=== PATIENT | male | born 1975 | race Asian ===

== ENCOUNTER 2019-04-19 16:28 | Emergency (ER) | payer OTHER ==
--- OUTSIDE RECORDS SUMMARY | 2019-04-19 16:34 | XMS REPORT | Continuity of Care Document ---
:1975 External Reference #:[id number] Author Name Melquiades Hoover N.P. (transmitted by agent of provider Silvana Duarte) Address [address], [place] [address] Care Team Providers Name Role Phone Liam Andersen MD - Internal Care Team Information Outside Operator Medicine Problems Description No Information Available Social History Type Date Description Comments Sex Unknown ETOH Use Denies alcohol use Tobacco Use Start: Unknown Patient has never smoked Smoking Status Reviewed: 03/17/19 Patient has never smoked Allergies, Adverse Reactions, Alerts Description No Known Drug Allergies Medications Active Medications SIG Qnty Indications Ordering Provider Date Amitriptyline HCL 1 tab bedtime 30tabs R51 Melquiades Hoover, 01/21/2019 10mg N.P. Tablets Breo Ellipta 1 puff inhaled Unknown Aerosol daily Immunizations Description No Information Available Vital Signs Date Vital Result Comment 03/17/2019 9:04am Height 69 inches 5'9" Weight 178.00 lb Heart Rate 74 /min BP Systolic 130 mmHg BP Diastolic 82 mmHg BMI (Body Mass Index) 26.3 kg/m2 01/21/2019 8:41am Height 69 inches 5'9" Weight 180.00 lb Heart Rate 80 /min BP Systolic 128 mmHg BP Diastolic 72 mmHg BMI (Body Mass Index) 26.6 kg/m2 Results Test Acquired Date Facility Test Result H/L Range Note CBC Auto 01/21/2019 [facility] White Blood 5.6 10^3/uL Normal 3.5-10.[address] [place] [address] [phone] Red Blood Count 4.64 10^6/uL Normal 4.18-5.48 Hemoglobin 13.9 g/dL Low 14.0-18.0 Hematocrit 41 % Low 42-52 Mean Corpuscular Volume 89 fL Normal 80-94 Mean Corpuscular Hemoglobin 30 pg Normal 27-31 Mean Corpuscular HGB Conc 34 g/dL Normal 31-36 Red Cell Distribution Width 13 % Normal 10-15 Platelet Count 176 10^3/uL Normal 150-450 Mean Platelet Volume 9.4 fL Normal 7.4-10.4 Abs Neutrophils 3.1 10^3/uL Normal 1.5-7.7 Abs Lymphocytes 1.6 10^3/uL Normal 1.0-4.8 Abs Monocytes 0.5 10^3/uL Normal 0-0.8 Abs Eosinophils 0.4 10^3/uL Normal 0-0.6 Abs Basophils 0.0 10^3/uL Normal 0-0.2 Abs Nucleated RBC 0.0 10^3/uL Granulocyte % 55.8 % Lymphocyte % 27.9 % Monocyte % 8.2 % Eosinophil % 7.3 % Basophil % 0.8 % Nucleated Red Blood Cells % 0.1 Comp Metabolic 01/21/2019 [facility] Sodium 140 mmol/L Normal 135-[address] [place] [address] [phone] Potassium 3.8 mmol/L Normal 3.5-5.0 Chloride 107 mmol/L Normal 101-111 Co2 Carbon Dioxide 27 mmol/L Normal 22-32 Anion Gap 6 mmol/L Normal 2-11 Glucose 125 mg/dL High 70-100 Blood Urea Nitrogen 15 mg/dL Normal 6-24 Creatinine 0.82 mg/dL Normal 0.67-1.17 BUN/Creatinine Ratio 18.3 Normal 8-20 Calcium 9.5 mg/dL Normal 8.6-10.3 Total Protein 7.0 g/dL Normal 6.4-8.9 Albumin 4.5 g/dL Normal 3.2-5.2 Globulin 2.5 g/dL Normal 2-4 Albumin/Globulin Ratio 1.8 Normal 1-3 Total Bilirubin 0.40 mg/dL Normal 0.2-1.0 Alkaline Phosphatase 56 U/L Normal 34-104 Alt 21 U/L Normal 7-52 Ast 19 U/L Normal 13-39 Egfr Non- 102.1 >60 Egfr 123.5 >60 1 Laboratory 01/21/2019 [facility] TSH (Thyroid 1.61 Normal 0.34 -5.60 2 test finding [address] Stim Horm) mcIU/[place] [address] [phone] Free T4 (Free Thyroxine) 0.66 ng/dL Normal 0.61-1.12 3 Vitamin B12 01/21/2019 [facility] Vitamin B12 357 pg/mL Normal 180-914 [address] F[address] [place] [address] [phone] Folic Acid (Folate) > 20.00 ng/mL >3.99 5 Laboratory test 01/21/2019 [facility] Methylmalonic Acid 0.23 <=0.40 [address] Mma nmol/[place] [address] [phone] 1 Because ethnic data is not always readily available, this report includes an eGFR for both -Americans and non- Americans. The National Kidney Disease Education Program (NKDEP) does not endorse the use of the MDRD equation for patients that are not between the ages of 18 and 70, are , have extremes of body size, muscle mass, or nutritional status, or are non- or non-. According to the National Kidney Foundation, irrespective of diagnosis, the stage of the disease is based on the level of kidney function: Stage Description GFR(mL/min/1.73 m(2)) 1 Kidney damage with normal or decreased GFR 90 2 Kidney damage with mild decrease in GFR 60-89 3 Moderate decrease in GFR 30-59 4 Severe decrease in GFR 15-29 5 Kidney failure <15 (or dialysis) 2 Copy Result to: LIAM ANDERSEN ([id number]) 3 Copy Result to: LIAM ANDERSEN ([id number]) 4 Normal Range 180 to 914 Indeterminate Range 145 to 180 Deficient Range <145 5 Copy Result to: LIAM ANDERSEN ([id number]) 6 ADDITIONAL INFORMATION This test was developed and its performance characteristics determined by [facility] in a manner consistent with CLIA requirements. This test has not been cleared or approved by the U.S. Food and Drug Administration. Test Performed by: [address] [address] Enrollment Management Vice President: Jonas Connor M.D. Ph.D.; IA# [id number] Procedures Description No Information Available Medical Devices Description No Information Available Encounters Type Date Location Provider Dx Diagnosis Office Visit 01/21/2019 [facility] Melquiades Hoover, R06.83 Snoring 9:00a [facility] N.P. R41.3 Other amnesia R51 Headache R53.83 Other fatigue Assessments Date Code Description Provider 03/17/2019 R41.3 Other amnesia Melquiades Kiko, N.P. 03/17/2019 R06.83 Snoring Melquiades Hoover, N.P. 03/17/2019 R51 Headache Melquiades Hoover, N.P. 01/21/2019 R06.83 Snoring Melquiades Hoover, N.P. 01/21/2019 R41.3 Other amnesia Melquiades Hoover, N.P. 01/21/2019 R51 Headache Melquiades Hoover, N.P. 01/21/2019 R53.83 Other fatigue Melquiades Hoover, N.P. Plan of Treatment Future Appointment(s):06/26/2019 9:15 am - Karlo Jimenez M.D. at [facility]03/17/2019 - Melquiades Hoover, N.P.R41.3 Other [id number] [id number] HeadacheFollow up:3 monthsRecommendations:please let me know if the medicine is not helping with the headache in about a months time Functional Status Description No Information Available Mental Status Description No Information Available Referrals Refer to Reason for Referral Status Appt Date Tamara Whiting MD Please speak to his Chance Bowles Sent [phone] [place] [address] [id number] [phone]
--- NOTE | 2019-04-19 16:42 | UC ---
Skin Complaint HPI - HPI Summary HPI Summary: 43 yo male presents with buttocks complaint. He tells me that about 2 weeks ago he saw his PCP due to a red and painful area on his right buttocks. He was placed on anbx for 1 week and then went back for a recheck - was improving, but was placed on another week of anbx. Pt states it has continued to improve and he has no more redness or pain. He cannot see the area well and is here today asking it to be checked to make sure it is "all gone". Denies fever or chills. No hx of MRSA. - History of Current Complaint Time Seen by Provider: 04/19/19 16:42 Stated Complaint: PERSONAL Hx Obtained From: Patient Onset Severity: Moderate Current Severity: None - Allergy/Home Medications Allergies/Adverse Reactions: Allergies Allergy/AdvReac Type Severity Reaction Status Date / Time No Known Allergies Allergy Verified 01/29/19 10:09 PMH/Surg Hx/FS Hx/Imm Hx - Additional Past Medical History Additional PMH: None - Surgical History Surgical History: None Surgery Procedure, Year, and Place: DENIES - Family History Known Family History: Positive: None - Social History Lives: With Family Alcohol Use: Occasionally Substance Use Type: None Smoking Status (MU): Never Smoked Tobacco Review of Systems All Other Systems Reviewed And Are Negative: No Constitutional: Positive: Negative Skin: Positive: Other - ?abscess buttocks Respiratory: Positive: Negative Cardiovascular: Positive: Negative Neurological: Positive: Negative Psychological: Positive: Negative Physical Exam - Summary Physical Exam Summary: GENERAL: NAD. WDWN. No pain distress. SKIN: RIGHT BUTTOCKS: No area of induration, erythema, edema, streaking, ulceration, or open wound at area of concern. NECK: Supple. Nontender. No lymphadenopathy. CHEST: No accessory muscle use. Breathing comfortably and in no distress. CV: Pulses intact. Cap refill <2seconds NEURO: Alert. PSYCH: Age appropriate behavior. Triage Information Reviewed: Yes Vital Signs: Vital Signs: Temp Pulse Resp BP Pulse Ox 98.0 F 67 16 122/72 100 04/19/19 16:43 04/19/19 16:43 04/19/19 16:43 04/19/19 16:43 04/19/19 16:43 Vital Signs Reviewed: Yes Course/Dx - Course Course Of Treatment: Area of concern appears normal at this time - suspect that he had an abscess here that has resolved with anbx treatment. - Diagnoses Provider Diagnosis: Abscess Discharge ED - Sign-Out/Discharge Documenting (check all that apply): Patient Departure All imaging exams completed and their final reports reviewed: No Studies - Discharge Plan Condition: Stable Disposition: HOME Referrals: Liam Fernández MD [Primary Care Provider] - Additional Instructions: The area on your buttocks appears healed. Please keep the area clean and dry - Billing Disposition and Condition Condition: STABLE Disposition: Home
[2019-04-19 16:53] VITALS: BP 122/72
== END 2019-04-19 17:16 | disposition home or self-care (01) ==
LOC: UCEAST 16:28
DX: L02.31 Cutaneous abscess of buttock (principal)
CPT/HCPCS: 99211; G0463